=== PATIENT | male | born 1975 | race Caucasian/White ===

== ENCOUNTER → 2018-05-20 16:34 | Outpatient (CLI) | payer BC, SELFPAY ==
[2018-05-20 17:29] LABS: Absolute Neutrophil Count 4.9 X10^3/uL (2.0-7.7); Basophil# 0.02 X10^3/uL; Basophil% 0.3 % (0-1); Eosinophil# 0.13 X10^3/uL; Eosinophils% 1.8 % (0-5); Hematocrit 48.1 % (40-54); Hemoglobin 16.3 g/dl (13.0-16.5); Lymphocyte % 18.3 % (19-41); Mean Corp Hgb Conc 33.9 g/gl (32-36); Mean Corpuscular Hgb 31.1 pg (27.0-32.0); Mean Corpuscular Volume 91.8 fL (80-94); Mean Platelet Vol. 10.2 fl (6.2-12.0); Monocyte# 0.78 X10^3/uL; Neutrophil # 4.88 X10^3/uL (2.7-7.7); Neutrophil % 68.5 % (47-70); Platelet Count 223 K/mm3 (150-450); RBC Distribution Width CV 13.5 % (11.6-14.6); RBC Distribution Width SD 45.1 fl (35.1-43.9); Red Blood Count 5.24 M/mm3 (4.6-6.2); White Blood Count 7.1 K/mm3 (4.4-11.0)
[2018-05-20 17:31] LABS: POSITIVE COUNT NO; POSITIVE DIFFERENTIAL NO; POSITIVE MORPHOLOGY NO
[2018-05-20 17:35] LABS: Erythrocyte Sedimentation Rate 9 mm/hr (0-15)
[2018-05-20 17:42] LABS: ALB/GLOB Ratio 0.8 RATIO (0.9-2.4); AST(SGOT) 17 U/L (15-37); Alanine Aminotransfer ALT/SGPT 26 U/L (16-61); Albumin, Serum 2.2 g/dL (3.2-5.0); Alkaline Phosphatase 109 U/L (45-117); Anion Gap 5 (5-15); BUN 11 mg/dL (7-18); BUN/Creat Ratio 8.8 RATIO (10-20); Calcium,Total 8.4 mg/dL (8.5-10.1); Chloride 106 mmol/L (98-107); Creatinine, Serum 1.25 mg/dL (0.70-1.30); EST Glomerular Filtration Rate 67 mL/min (>60); Est Glom Filt Rate - Afr Amer 81 mL/min (>60); Globulin 2.7 g/dL (2.2-4.2); Glucose 80 mg/dL (74-106); Potassium 4.1 mmol/L (3.5-5.1); Protein, Total 4.9 g/dL (6.4-8.2); Sodium Level 144 mmol/L (136-145)
--- OUTSIDE RECORDS SUMMARY | 2018-07-15 16:23 | XMS RPT_ITS ---
:1975 Author Organization [facility] Care Team Providers Name Role Phone Judy Escalante Attending Unavailable Judy Escalante Primary Care Unavailable PROBLEMS PROBLEMS No Problem Records FoundPROCEDURES PROCEDURES No Procedure Records FoundRESULTS RESULTS CBC W/DIFF, AUTOMATED Collected: 05/20/2018 Status: F Source: [place] 4:36 PM [facility] REPOSITORY TYPE CODE TESTS RESULT OUT OF RANGE REFERENCE UNITS LAB L100.1000 4.4-11.0 K/mm3 Normal WBC 7.1 LAB L100.1200 4.6-6.2 M/mm3 Normal RBC 5.24 LAB L100.1300 13.0-16.5 g/dl Normal HGB 16.3 LAB L100.1400 40-54 % Normal HCT 48.1 LAB L100.1500 80-94 fL Normal MCV 91.8 LAB L100.1600 27.0-32.0 pg Normal MCH 31.1 LAB L100.1700 32-36 g/gl Normal MCHC 33.9 LAB L100.1810 11.6-14.6 % Normal RDW CV 13.5 LAB L100.1820 35.1-43.9 fl High RDW SD 45.1 LAB L100.1900 150-450 K/mm3 Normal PLT 223 LAB L100.2000 6.2-12.0 fl Normal MPV 10.2 LAB L100.2100 47-70 % Normal NEUT% 68.5 LAB L100.2200 19-41 % Low LY% 18.3 LAB L100.2300 0-10 % High MONO% 11.0 LAB L100.2400 0-5 % Normal EO% 1.8 LAB L100.2500 0-1 % Normal BASO% 0.3 LAB L100.2550 0.0-0.9 % Normal IM GRAN % 0.100 Result Comment: IG% - Immature Granulocytes (promyelocytes, myelocytes and metamyelocytes) > 1% indicates that a LEFT SHIFT is Present. LAB L100.2620 2.0-7.7 X10 3/uL Normal Absolute Neut 4.9 LAB L100.2720 0.83-4.51 X10 3/ul Normal Absolute Lymph 1.30 Performed By: #### L100.0100, L101.9900 #### [facility] [address] [place], [place], [address] ERYTHROCYTE SED RATE Collected: 05/20/2018 Status: F Source: [place] 4:36 PM [facility] REPOSITORY TYPE CODE TESTS RESULT OUT OF RANGE REFERENCE UNITS LAB L102.0000 0-15 mm/hr Normal SED RATE 9 Performed By: #### L100.0100, L101.9900 #### [facility] [address] [facility] [place], [place], [address] COMPREHENSIVE METABOLIC Collected: 05/20/2018 Status: F Source: [facility] 4:36 PM [facility] REPOSITORY TYPE CODE TESTS RESULT OUT OF RANGE REFERENCE UNITS LAB L501.0100 74-106 mg/dL Normal GLU 80 Result Comment: Please note revised GLUCOSE reference range effective 2017. LAB L501.1000 7-18 mg/dL Normal BUN 11 LAB L501.1100 0.70-1.30 mg/dL Normal CREAT,SERUM 1.25 Result Comment: The validity of the calculated GFR AND GFRAA in patients over 70 years has not been determined. Clinical correlation is essential. LAB L501.1110 >60 mL/min Normal EST GFR 67 Result Comment: Non- GFR Calc LAB L501.1115 >60 mL/min Normal EST GFR - AA 81 Result Comment: GFR Calc LAB L501.1300 10-20 RATIO Low BUN/CRE 8.8 LAB L501.1500 6.4-8.2 g/dL Low T PROT 4.9 LAB L501.1800 3.2-5.0 g/dL Low ALB 2.2 LAB L501.1950 2.2-4.2 g/dL Normal GLOB 2.7 LAB L501.2000 0.9-2.4 RATIO Low A/G 0.8 LAB L501.2200 8.5-10.1 mg/dL Low CA 8.4 LAB L501.4100 15-37 U/L Normal AST 17 LAB L501.4305 45-117 U/L Normal ALK P 109 LAB L501.4405 16-61 U/L Normal ALT 26 LAB L501.4600 0.20-1.00 mg/dL Normal T BILI 0.30 LAB L501.5300 136-145 mmol/L Normal NA 144 LAB L501.5600 3.5-5.1 mmol/L Normal K 4.1 LAB L501.5900 98-107 mmol/L Normal CL 106 LAB L501.6100 21.0-32.0 mmol/L High CO2 33.0 LAB L501.6200 5-15 Normal GAP 5 Performed By: #### L500.4050 #### [facility] [address] [place], [address] ALLERGIES ALLERGIES DATE TYPE / CODE NAME / CODE REACTION SEVERITY SOURCE 02/11/2015 Drug No Known Unknown [facility] Allergy/4160 Allergies/F00 Hospital 44123(SNOMED [id number](RXNOR Repository CT) M) ENCOUNTERS ENCOUNTERS ADMIT/DISCHARGE ACCOUNT ADMITTING ENCOUNTER LOCATION SOURCE NUMBER CLASS 05/20/2018 [id number] Ambulatory [address] ing:MFPLAB Repository PAYERS PAYERS ENCOUNTER GUARANTOR PAYER SUBSCRIBER SOURCE 05/20/2018 CHARLY Primary CHARLY Colome [id number] Insurance:ANTHEMPolic [facility]MANDOB[facility] [place]: [id number] [id number] Repository [address]a: [address]) Date:[id number] [phone] () [id number], [place] [address]YH: 05/20/2018 Secondary NOT GIVENUNK Angelique Insurance:SELF PAY [facility] Number: Effective Repository Date:2018-05-20
== END ==
PROVIDERS: Family Provider Family Medicine; PCP Family Medicine; Visit Provider Family Medicine
DX: R31.9 Hematuria, unspecified (principal)
CPT/HCPCS: 36415; 80053; 85025; 85652

== ENCOUNTER → 2018-06-10 06:45 | Outpatient (CLI) | payer BC, SELFPAY ==
--- NOTE | 2018-06-10 06:49 | CT_ITS ---
STUDY: CT ABDOMEN AND PELVIS WITH AND WITHOUT CONTRAST REASON FOR EXAM: Male, 43 years old. Microscopic hematuria RADIATION DOSAGE (If Supplied By Facility): CTDIvol = ( 19.92 ) mGy, DLP = ( 1963.75 ) mGycm TECHNIQUE: Transaxial images were obtained from the dome of the diaphragm to the symphysis pubis without oral contrast. 100mL ml of Isovue 300 contrast was administered. Sagittal and coronal images were reconstructed. Individualized dose optimization techniques were used for this CT. COMPARISON: None. FINDINGS: The visualized lung bases are unremarkable. The visualized portions of the heart are within normal limits. Normal liver. Normal gallbladder and extrahepatic biliary system. Normal spleen. Normal pancreas. Normal bilateral adrenal glands. Normal right kidney. Normal left kidney. There are NO kidney stones or ureteral stones. There is NO hydronephrosis. There is NO renal mass or cyst. Normal visualized stomach. Normal small intestine. Normal colon. The appendix is visualized and appears normal. Normal abdominal aorta. Normal inferior vena cava. Normal retroperitoneum. Normal urinary bladder. There is NO ascites, free air, abscess or adenopathy. Normal abdominal wall. There is bilateral spondylolysis at L5-S1 with grade 1 anterior spondylolisthesis. There are NO fractures. CT/CT Abd/Pelvis W/WO Contrast IMPRESSION: There are NO kidney stones or ureteral stones. There is NO hydronephrosis. There is NO renal mass or cyst. There is NO bowel abnormality. Normal urinary bladder. There is NO ascites, free air, abscess or adenopathy. Electronically Signed: Elton Goodson MD at 7:21 EST , Service support ,
== END ==
PROVIDERS: Family Provider Family Medicine; PCP Family Medicine; Referring Provider Nurse Practitioner Adult Health; Visit Provider Nurse Practitioner Adult Health
DX: R31.29 Other microscopic hematuria (principal)
CPT/HCPCS: 74178; Q9967

== ENCOUNTER 2018-08-29 12:15 | Emergency (ER) | payer OTHER, SELFPAY ==
[2018-08-29 12:16] VITALS: BP 128/88; PULSE 99; RESP 16; TEMP 36.4; O2SAT 97; BMI 28.7
[2018-08-29] MEDS: Mag Hydrox/Al Hydrox/Simeth 30 ML UDC PO (12:57)
[2018-08-29 12:58] LABS: Absolute Lymphocyte Count 1.36 X10^3/ul (0.83-4.51); Basophil# 0.01 X10^3/uL; Basophil% 0.1 % (0-1); Eosinophil# 0.19 X10^3/uL; Eosinophils% 2.3 % (0-5); Hematocrit 41.7 % (40-54); Lymphocyte # 1.36 X10^3/ul (4.0); Lymphocyte % 16.4 % (19-41); Mean Corp Hgb Conc 33.6 g/gl (32-36); Mean Corpuscular Hgb 29.6 pg (27.0-32.0); Mean Corpuscular Volume 88.2 fL (80-94); Mean Platelet Vol. 9.9 fl (6.2-12.0); Monocyte# 0.72 X10^3/uL; Monocyte% 8.7 % (0-10); Neutrophil % 72.4 % (47-70); Platelet Count 218 K/mm3 (150-450); RBC Distribution Width CV 12.9 % (11.6-14.6); RBC Distribution Width SD 41.3 fl (35.1-43.9); Red Blood Count 4.73 M/mm3 (4.6-6.2); White Blood Count 8.3 K/mm3 (4.4-11.0)
[2018-08-29 12:59] LABS: POSITIVE COUNT NO; POSITIVE DIFFERENTIAL NO; POSITIVE MORPHOLOGY NO
[2018-08-29 13:06] LABS: ALB/GLOB Ratio 0.5 RATIO (0.9-2.4); AST(SGOT) 11 U/L (15-37); Alanine Aminotransfer ALT/SGPT 17 U/L (16-61); Albumin, Serum 1.7 g/dL (3.2-5.0); Alkaline Phosphatase 117 U/L (45-117); Anion Gap 5 (5-15); BUN 9 mg/dL (7-18); BUN/Creat Ratio 8.4 RATIO (10-20); Calcium,Total 7.7 mg/dL (8.5-10.1); Chloride 107 mmol/L (98-107); Creatinine, Serum 1.07 mg/dL (0.70-1.30); EST Glomerular Filtration Rate 80 mL/min (>60); Est Glom Filt Rate - Afr Amer 97 mL/min (>60); Estimated Creatinine Clearance 91.91 ml/min; Globulin 3.2 g/dL (2.2-4.2); Glucose 110 mg/dL (74-106); Lipase 82 U/L (73-393); Potassium 3.7 mmol/L (3.5-5.1); Protein, Total 4.9 g/dL (6.4-8.2); Sodium Level 140 mmol/L (136-145)
[2018-08-29 14:26] VITALS: BP 154/97; PULSE 62; RESP 16; O2SAT 98
--- NOTE | 2018-08-29 15:41 | CT_ITS ---
STUDY: CT ABDOMEN AND PELVIS WITH CONTRAST REASON FOR EXAM: Male, 43 years old. Abdominal pain. RADIATION DOSAGE (If Supplied By Facility): CTDIvol = ( 16.52 ) mGy, DLP = ( 1113.73 ) mGycm TECHNIQUE: Transaxial images were obtained from the dome of the diaphragm to the symphysis pubis with oral contrast. Isovue 300 100ml IV/Oral was administered. Sagittal and coronal images were reconstructed. Individualized dose optimization techniques were used for this CT. COMPARISON: June 10, 2018. FINDINGS: The visualized lung bases are unremarkable. The visualized portions of the heart are within normal limits. Normal liver. Normal gallbladder and extrahepatic biliary system. There is moderate splenomegaly. Normal pancreas. Normal bilateral adrenal glands. Normal right kidney. Normal left kidney. There is a type I hiatal hernia. The stomach is otherwise unremarkable. Normal small intestine. Air in feces is seen throughout nondistended colon without mass or obstruction. The appendix is visualized and appears normal. Normal abdominal aorta. Normal inferior vena cava. Normal retroperitoneum. Normal urinary bladder. Normal prostate and seminal vesicles. There is no pelvic lymphadenopathy. No free air or free fluid is seen within the peritoneal cavity. Normal abdominal wall. There are diffuse degenerative changes of the visualized lumbar spine. There is anterolisthesis of L5 on S1 with bilateral pars defects. CT/Abdomen/Pelvis WITH Contrast IMPRESSION: 1. Stable hiatal hernia. 2. Stable mild splenomegaly. 3. No evidence for acute intra-abdominal or pelvic abnormality or major interval change. Electronically Signed: Natan Sykes DO at 16:50 EDT Tel [phone], Service support ,
--- NOTE | 2018-08-29 16:14 | ED.VISSUMM ---
- ER Visit Summary Date of Service: 08/29/18 Chief Complaint: Abdominal pain History of Present Illness: The patient is a 43 M who presents the emergency department with epigastric pain. He states that it is a sensation like his been punched in the stomach. It is nonradiating. He states he had a gallbladder ultrasound 1 week ago. He states that showed polyps. He was referred to general surgery (Jorge) and supposed to see them on Wednesday. He states now the pain is constant and more severe. Notes a history of GERD and is on Prilosec. He has had this pain intermittently since May. He states the pain in his abdomen feels better when he pushes on his epigastrium Physical Examination: Afebrile vital signs are stable Gen: Well-nourished well-developed Head: Normocephalic atraumatic Eyes: Perrl EOMI ENT: TMs clear no rhinorrhea moist mucous membranes Neck: Supple no lymphadenopathy no JVD nontender CVS: Regular rate rhythm no murmurs normal S1-S2 Respiratory: No distress clear to auscultation bilaterally chest nontender Abdomen: Soft nontender nondistended normal bowel sounds no masses Back: Nontender Extremity: Nontender no edema Skin: Normal color no rash Neuro: alert orientated ?3 CN II-XII intact normal strength sensation reflexes gait cerebellar Psych: Normal affect normal mood Test Results: CBC CMP and lipase were normal. CT demonstrates a hiatal hernia. Emergency Department Course and Treatment: GI cocktail did not alleviate his symptoms. Patient received morphine with some improvement of his symptoms. This point there is no clear etiology for his pain. Given the location is CT with a hiatal hernia I do suspect this could be peptic ulcer disease versus gastritis. Patient has upcoming appointment in 4 days with surgery. I will write for some Carafate to add to his Prilosec. Impression: 1. Acute abdominal pain This note was generated with [employer] dictation software. It may contain incorrect words, spelling, and punctuation that were not noted in review of the chart prior to signing ED Disposition - Plan for ED Patient: Disposition: Home or Assisted Living Instructions: ED PUD Vs Gastritis Prescriptions: Hydrocodone Bitart/Apap 5-325 [[place] 5MG-325MG] 1 tab PO Q6H PRN PRN 3 Days #10 tab PRN Reason: Pain Sucralfate [Carafate] 1 gm PO 4X/DAY #56 tab Referrals: Wes Patel MD [STAFF PHYSICIAN] - Keep Melba appointment
--- NOTE | 2018-08-29 16:18 | ED.DCSUM_ITS ---
- ER Visit Summary Date of Service: 08/29/18 Chief Complaint: Abdominal pain History of Present Illness: The patient is a 43 M who presents the emergency department with epigastric pain. He states that it is a sensation like his been punched in the stomach. It is nonradiating. He states he had a gallbladder ultrasound 1 week ago. He states that showed polyps. He was referred to general surgery (Jorge) and supposed to see them on Wednesday. He states now the pain is constant and more severe. Notes a history of GERD and is on Prilosec. He has had this pain intermittently since May. He states the pain in his abdomen feels better when he pushes on his epigastrium Physical Examination: Afebrile vital signs are stable Gen: Well-nourished well-developed Head: Normocephalic atraumatic Eyes: Perrl EOMI ENT: TMs clear no rhinorrhea moist mucous membranes Neck: Supple no lymphadenopathy no JVD nontender CVS: Regular rate rhythm no murmurs normal S1-S2 Respiratory: No distress clear to auscultation bilaterally chest nontender Abdomen: Soft nontender nondistended normal bowel sounds no masses Back: Nontender Extremity: Nontender no edema Skin: Normal color no rash Neuro: alert orientated ?3 CN II-XII intact normal strength sensation reflexes gait cerebellar Psych: Normal affect normal mood Test Results: CBC CMP and lipase were normal. CT demonstrates a hiatal hernia. Emergency Department Course and Treatment: GI cocktail did not alleviate his symptoms. Patient received morphine with some improvement of his symptoms. This point there is no clear etiology for his pain. Given the location is CT with a hiatal hernia I do suspect this could be peptic ulcer disease versus gastritis. Patient has upcoming appointment in 4 days with surgery. I will write for some Carafate to add to his Prilosec. Impression: 1. Acute abdominal pain This note was generated with [employer] dictation software. It may contain incorrect words, spelling, and punctuation that were not noted in review of the chart prior to signing ED Disposition - Plan for ED Patient: Disposition: Home or Assisted Living Instructions: ED PUD Vs Gastritis Prescriptions: Hydrocodone Bitart/Apap 5-325 [[place] 5MG-325MG] 1 tab PO Q6H PRN PRN 3 Days #10 tab PRN Reason: Pain Sucralfate [Carafate] 1 gm PO 4X/DAY #56 tab Referrals: Wes Patel MD [STAFF PHYSICIAN] - Keep Melba appointment
[2018-08-29 16:37] VITALS: BP 139/74; PULSE 71; RESP 16; O2SAT 98
== END 2018-08-29 17:14 | disposition home or self-care (01) ==
PROVIDERS: Emergency Provider Emergency Medicine; Family Provider Physician Assistant; PCP Physician Assistant
DX: R10.13 Epigastric pain (principal); K44.9 Diaphragmatic hernia without obstruction or gangrene; K21.9 Gastro-esophageal reflux disease without esophagitis; Z79.899 Other long term (current) drug therapy
CPT/HCPCS: 74177; 80053; 83690; 85025; 99284; Q9967; A4216

== ENCOUNTER 2018-10-09 22:33 | Emergency (ER) | payer OTHER, SELFPAY ==
[2018-10-09 22:34] VITALS: BP 118/69; PULSE 89; RESP 18; TEMP 37.1; O2SAT 99; BMI 25.8
--- NOTE | 2018-10-09 23:03 | ED.VIS.GEN ---
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 Has not started treatment. Has seen oncology as well as surgery. He is going to start chemotherapy tomorrow. He has had chronic intermittent abdominal pain that has not changed in nature since May. He was seen in our emergency department approximately 5 weeks ago and had a normal CT of his abdomen pelvis. He did have a hiatal hernia. He followed up and had an endoscopy which showed esophageal cancer. The patient is here today because he started having emesis approximately a few hours ago. He has had 3-4 episodes. He tried Compazine but cannot keep it down. He has had problems with dry heaving and nausea due to his esophagus cancer. He has not had treatment yet. The plan is to do chemotherapy starting tomorrow followed by resection of the tumor following. Current severity is mild to moderate. Denies any new abdominal pain. No fevers or chills. Past Medical History - Allergies and Home Meds Allergies/Adverse Reactions: Allergies No Known Allergies Allergy (Verified 02/11/15 13:57) Primary Care Physician: Kathya Smith PA [Primary Care Provider] - Prior records reviewed: Yes Past Medical History: - - Esophageal cancer Surgical History: - - Port Smoking Status: Never smoker Alcohol: Occasional Drugs: None Review of Systems General: Denies: Chills, Fever, Sweats Eyes: Denies: Visual changes - bilaterally, Diplopia ENT: Denies: Rhinorrhea, Sore throat Cardiovascular: Denies: Chest pain, Palpitations Respiratory: Reports: Paroxysmal nocturnal dyspnea. Denies: Dyspnea, Cough, Dyspnea on exertion Gastrointestinal: Reports: Abdominal pain - Pain in his abdomen is chronic and not changed, Nausea, Vomiting. Denies: Diarrhea, Melena, Hematochezia Genitourinary: Denies: Dysuria, Hematuria, Frequency Musculoskeletal: Denies: Back pain, Extremity Pain Skin: Denies: Rash, Wounds Neurological: Denies: Headache, Weakness, Numbness Physical Exam Vital Signs/Narrative: Vital Signs Temp Pulse Resp BP Pulse Ox 10/09/18 22:34 98.8 F 89 18 118/69 99 General: Well nourished, Well developed, No Acute Distress Head: Normocephalic, Atraumatic Eyes: Perrl, EOMI ENT: Moist mucous membranes, No rhinorrhea Neck: Supple, Nontender Cardiovascular: Regular rate, Regular rhythm, No murmurs Respiratory: No distress, CTA bilaterally, Chest nontender Abdomen: Soft, Nontender, Nondistended, Normal bowel sounds Back: Nontender, Normal Inspection Extremities: Nontender, No edema Skin: Normal color, No rash Neurological: Alert, Oriented x3, Cranial nerves II-XII grossly intact, Normal Strength, Normal Sensation Psychological: Normal affect, Normal Mood Diagnostic/Tx/Re-eval - Medical Decision Making Patient given IV fluids and Zofran. Lab work obtained. Lab work shows a very slight leukocytosis. I suspect this is from his nausea. On reevaluation his nausea is resolved. Given 2 L of fluid. Resting comfortably. Given a dose of Toradol for mild chronic abdominal pain. I do not feel he needs repeat CT abdomen pelvis. He will follow-up as an outpatient for further treatment of his esophageal cancer. Given a prescription for Zofran for home ED Disposition - Plan for ED Patient: Disposition: Home or Assisted Living Diagnosis: Nausea and vomiting, Esophageal cancer Instructions: ED Nausea Vomiting Prescriptions: Ondansetron [Zofran Odt] 4 mg PO Q8H PRN PRN #10 tab PRN Reason: Nausea Referrals: Kathya Smith PA [Primary Care Provider] -
[2018-10-09] MEDS: Ondansetron 4 MG/2 ML Vial IV (23:12)
[2018-10-09] MEDS: 0.9% Normal Saline 1,000 ML 1000 ML IV ×2 (23:12)
[2018-10-09 23:17] LABS: Basophil% 0.1 % (0-1); Eosinophils% 1.7 % (0-5); Hemoglobin 13.2 g/dl (13.0-16.5); Lymphocyte % 13.9 % (19-41); Mean Corp Hgb Conc 34.7 g/gl (32-36); Mean Corpuscular Volume 86.4 fL (80-94); Mean Platelet Vol. 8.8 fl (6.2-12.0); Neutrophil % 76.1 % (47-70); Platelet Count 391 K/mm3 (150-450); RBC Distribution Width CV 12.9 % (11.6-14.6); RBC Distribution Width SD 40.5 fl (35.1-43.9); White Blood Count 12.7 K/mm3 (4.4-11.0)
[2018-10-09 23:18] LABS: Absolute Lymphocyte Count 1.76 X10^3/ul (0.83-4.51); Absolute Neutrophil Count 9.7 X10^3/uL (2.0-7.7); Basophil# 0.01 X10^3/uL; Eosinophil# 0.22 X10^3/uL; Lymphocyte # 1.76 X10^3/ul (4.0); Monocyte# 1.01 X10^3/uL; Neutrophil # 9.66 X10^3/uL (2.7-7.7); POSITIVE COUNT NO; POSITIVE DIFFERENTIAL NO; POSITIVE MORPHOLOGY NO
[2018-10-09 23:30] LABS: Anion Gap 5 (5-15); BUN 10 mg/dL (7-18); BUN/Creat Ratio 10.4 RATIO (10-20); Calcium,Total 8.4 mg/dL (8.5-10.1); Chloride 102 mmol/L (98-107); Creatinine, Serum 0.96 mg/dL (0.70-1.30); EST Glomerular Filtration Rate 90 mL/min (>60); Est Glom Filt Rate - Afr Amer 109 mL/min (>60); Estimated Creatinine Clearance 102.45 ml/min; Glucose 126 mg/dL (74-106); Potassium 4.3 mmol/L (3.5-5.1); Sodium Level 138 mmol/L (136-145)
[2018-10-10] MEDS: Ketorolac 15 MG/ML Vial IV (00:34)
[2018-10-10 00:38] VITALS: BP 119/90; PULSE 64; RESP 14; O2SAT 98
== END 2018-10-10 00:38 | disposition home or self-care (01) ==
PROVIDERS: Emergency Provider Emergency Medicine; Family Provider Physician Assistant; PCP Physician Assistant
DX: R11.2 Nausea with vomiting, unspecified (principal); C15.9 Malignant neoplasm of esophagus, unspecified; G89.29 Other chronic pain; R10.9 Unspecified abdominal pain; Z79.899 Other long term (current) drug therapy
CPT/HCPCS: 80048; 85025; 96361; 96374; 96375; 99282; J7030; A4216; J2405

== ENCOUNTER 2018-12-01 19:07 | Emergency (ER) | payer OTHER, SELFPAY ==
[2018-12-01] VITALS (12 sets, daily range): BP systolic 95–136; BP diastolic 69–91; PULSE 80–127; RESP 25–107; TEMP 36.9–39.4; O2SAT 90–97; BMI 23.6
[2018-12-01 19:26] LABS: Bedside Glucose 105 mg/dL (70-110)
--- NOTE | 2018-12-01 19:26 | CT_ITS ---
STUDY: CT BRAIN WITHOUT CONTRAST REASON FOR EXAM: Male, 43 years old. Syncope. Laceration to the back of the head RADIATION DOSAGE (If Supplied By Facility): CTDIvol = ( 44.99 ) mGy, DLP = ( 829.85 ) mGycm TECHNIQUE: Transaxial CT imaging of the brain was performed without administration of intravenous contrast material. Individualized dose optimization techniques were used for this CT. COMPARISON: No relevant priors. FINDINGS: Normal soft tissue structures. Normal calvarium. Normal size ventricles and extra-axial spaces for the patient's age. Normal white matter tracts of the cerebral hemispheres. Normal basal ganglia and thalami. Normal brainstem. Normal cerebellum. There is no intracranial hemorrhage. There are no findings of an acute ischemic infarction. There is mucoperiosteal inflammatory disease of the paranasal sinuses consistent with moderate chronic sinusitis. CT/Brain/Head without Contrast IMPRESSION: No acute finding Electronically Signed: Kenneth Pitts DO at 20:59 EDT Tel , Service support ,
--- NOTE | 2018-12-01 19:26 | EKG12_ITS ---
Test Reason : UNRESPONSIVE Blood Pressure : / mmHG Vent. Rate : 107 BPM Atrial Rate : 107 BPM P-R Int : 126 ms QRS Dur : 086 ms QT Int : 396 ms P-R-T Axes : 059 078 -14 degrees QTc Int : 528 ms Sinus tachycardia Possible Inferior infarct , age undetermined Prolonged QT Abnormal ECG Confirmed by LISA ROD ([id number]), assistant film editor FABIANO MARQUEZ ([id number]) on 12/05/2018 1:12:35 PM Referred By: Confirmed By:KAELA ROD
--- NOTE | 2018-12-01 19:27 | CT_ITS ---
STUDY: CT ABDOMEN AND PELVIS WITH CONTRAST REASON FOR EXAM: Male, 43 years old. Syncope. RADIATION DOSAGE (If Supplied By Facility): CTDIvol = ( 13.50 ) mGy, DLP = ( 945.62 ) mGycm TECHNIQUE: Transaxial images were obtained from the dome of the diaphragm to the symphysis pubis without oral contrast. 100ml IV Isovue 300 was administered. Sagittal and coronal images were reconstructed. Individualized dose optimization techniques were used for this CT. COMPARISON: None. FINDINGS: Diffuse patchy groundglass airspace disease in the right lower lobe suggesting infection. Art size is within normal limits. Diffuse esophageal wall thickening of the distal esophagus. Normal liver. The gallbladder is contracted. Normal spleen. Normal pancreas. Normal bilateral adrenal glands. Normal right kidney. Normal left kidney. Normal visualized stomach. Normal small intestine. Normal colon. The appendix is visualized and appears normal. Normal abdominal aorta. Normal inferior vena cava. Normal retroperitoneum. Normal urinary bladder. Unremarkable prostate. Trace pelvic free fluid Normal abdominal wall. Normal osseous structures. CT/Abdomen/Pelvis W IV Cont ONLY IMPRESSION: Patchy groundglass airspace disease in the right lower lobe suggesting infection. Distal esophageal wall thickening could be related to given history of esophageal carcinoma. Small amount of nonspecific pelvic free fluid Electronically Signed: Kenneth Pitts DO at 20:55 EDT Tel , Service support ,
--- NOTE | 2018-12-01 19:30 | RAD_ITS ---
STUDY: X-RAY CHEST REASON FOR EXAM: Male, 43 years old. Shortness of breath TECHNIQUE: Single AP portable view of the chest. COMPARISON: None. FINDINGS: Lungs are adequately inflated. Subtle right lower lobe infiltrate suggesting pneumonia. Left chest wall Mediport is noted. There is no demonstrated pleural abnormality. Normal size heart. Normal mediastinum and obdulio. Normal visualized pulmonary arteries. Normal visualized aortic arch and descending thoracic aorta. There are diffuse degenerative changes of the visualized thoracic spine. Normal visualized ribs, clavicles, and shoulders. There is no demonstrated abnormality of the visualized soft tissue structures of the upper abdomen. RAD/Chest 1 View (Portable) IMPRESSION: Subtle right lower lobe pneumonia Electronically Signed: Kenneth Pitts DO at 20:03 EDT Tel , Service support ,
--- NOTE | 2018-12-01 19:30 | CT_ITS ---
STUDY: CT CERVICAL SPINE WITHOUT CONTRAST REASON FOR EXAM: Male, 43 years old. Syncope RADIATION DOSAGE (If Supplied By Facility): CTDIvol = ( 12.13 ) mGy, DLP = ( 264.56 ) mGycm TECHNIQUE: High resolution transaxial imaging was performed without contrast material. Sagittal and coronal images were reconstructed. Individualized dose optimization techniques were used for this CT. COMPARISON: None FINDINGS: Normal craniovertebral junction. Normal anterior atlantoaxial articulation. Normal odontoid process. Normal cervical lordosis. Normal vertebral bodies and posterior osseous elements. C2-3: Normal endplates. Normal disc height and morphology. Normal central canal and intervertebral neuroforamina. C3-4: Normal endplates. Normal disc height and morphology. Normal central canal and intervertebral neuroforamina. C4-5: Normal endplates. Normal disc height and morphology. Normal central canal and intervertebral neuroforamina. C5-6: Normal endplates. Normal disc height and morphology. Normal central canal and intervertebral neuroforamina. C6-7: Normal endplates. Normal disc height and morphology. Normal central canal and intervertebral neuroforamina. C7-T1: Normal endplates. Normal disc height and morphology. Normal central canal and intervertebral neuroforamina. Normal visualized soft tissue structures. CT/Spine Cervical without Contras IMPRESSION: Normal unenhanced CT examination of the cervical spine. Electronically Signed: Kenneth Pitts DO at 21:00 EDT Tel , Service support ,
--- NOTE | 2018-12-01 19:33 | ED.DCSUM_ITS ---
- ER Visit Summary Date of Service: 12/01/18 Chief Complaint: Syncopal episode History of Present Illness: The patient is a 43 M presenting after syncopal episode. Patient had a syncopal episode and family called EMS. On EMS arrival he had collapsed while trying to walk to the ambulance. Patient has a history of esophageal cancer and recently finished chemotherapy. Family states he has been ill for the past few days. He has a fever on arrival. They were unaware of his fever at home. He denies use of pain medications at home. History is otherwise limited. Physical Examination: Blood pressure 121/91, temperature 102.9, heart rate 117, respiratory rate 26. Pulse ox 91% on room air. HEENT exam dry mucous membranes Neck is supple. Lungs are clear and equal bilaterally. Heart is regular and tachycardic Abdomen is soft diffuse tenderness with no rebound or guarding Extremities are unremarkable. Skin is warm and dry. Pallor. No rash No focal neurologic deficit. Opens eyes to voice. Remainder of exam is unremarkable. Emergency Department Course and Treatment: Patient was given IV fluids, Zofran, rectal Tylenol. Blood cultures were drawn. CBC shows white count 2.5, hemoglobin 10.1. Sodium 129, potassium 2.8, glucose 114. Alk phos 122, lipase 84, INR 1.4. Troponin is negative. Lactic acid 2.4. Chest x-ray shows right lower lobe pneumonia. CT head and neck show no acute process. CT abdomen pelvis shows patchy groundglass airspace disease in the right lower lobe suggesting infection. Distal esophageal wall thickening could be related to given history of esophageal carcinoma. Small amount of nonspecific pelvic free fluid. Patient was given meropenem IV. He is requesting transfer to [facility]. Discussed with [facility] and patient will be transferred. Disposition: Transfer to [facility] Impression: Pneumonia, syncope, esophageal cancer This note was generated with [employer] dictation software. It may contain incorrect words, spelling, and punctuation that were not noted in review of the chart prior to signing ED Disposition - Plan for ED Patient: Referrals: Kathya Smith PA [Primary Care Provider] -
--- NOTE | 2018-12-01 19:33 | ED.RN ---
NO OLD EKGS IN MUSE
[2018-12-01] MEDS: Acetaminophen 650 MG Suppository RECTAL (19:41)
[2018-12-01] MEDS: 0.9% Normal Saline 1,000 ML 1000 ML IV (19:41)
[2018-12-01] MEDS: Ondansetron 4 MG/2 ML Vial IV (19:41)
[2018-12-01 19:43] LABS: Absolute Lymphocyte Count 0.66 X10^3/ul (0.83-4.51); Absolute Neutrophil Count 1.6 X10^3/uL (2.0-7.7); Hematocrit 29.5 % (40-54); Hemoglobin 10.1 g/dl (13.0-16.5); Lymphocyte # 0.66 X10^3/ul (4.0); Lymphocyte % 26.5 % (19-41); Mean Corp Hgb Conc 34.2 g/gl (32-36); Mean Corpuscular Hgb 29.4 pg (27.0-32.0); Mean Corpuscular Volume 85.8 fL (80-94); Mean Platelet Vol. 8.4 fl (6.2-12.0); Monocyte# 0.21 X10^3/uL; Monocyte% 8.4 % (0-10); Neutrophil # 1.61 X10^3/uL (2.7-7.7); Neutrophil % 64.7 % (47-70); Platelet Count 357 K/mm3 (150-450); RBC Distribution Width CV 15.6 % (11.6-14.6); RBC Distribution Width SD 48.6 fl (35.1-43.9); Red Blood Count 3.44 M/mm3 (4.6-6.2); White Blood Count 2.5 K/mm3 (4.4-11.0)
--- NOTE | 2018-12-01 19:45 | CM.ED ---
SOCIAL WORK INFORMANT: SELF REFERRAL REASON FOR REFERRAL: UNRESPONSIVE MET WITH PATIENT'S FAMILY OUTSIDE OF ROOM. PATIENT GETTING XRAY. PATIENT WITH HX OF CANCER AND JUST COMPLETED CHEMO LAST WEEK. FAMILY REPORTS PATIENT LIVES HOME ALONE IN A TRAILER AND PLAN WAS FOR PATIENT TO STAY WITH MOTHER UNTIL STRENGTH BUILT BACK UP. MOTHER REPORTS PATIENT HAS BECOME MORE WEAK AND UNABLE TO CARE FOR SELF ALONE. BROTHER REPORTS PATIENT HAS BEEN PASSING OUT A LOT LATELY. FAMILY REPORTS PATIENT HAS NOT YET COMPLETED ADVANCED DIRECTIVES AND WOULD LIKE FOR PATIENT TO HAVE INFORMATION. ADVANCED DIRECTIVES PACKET PROVIDED. FAMILY STATES WOULD LIKE PATIENT TO BE TRANSFERRED TO [facility] THAT IS WHERE HE IS TO HAVE SURGERY. INFORMED FAMILY THIS WORKER WILL DISCUSS WITH DR. STAFFORD. EMOTIONAL SUPPORT PROVIDED. DR. STAFFORD UPDATED ON THE ABOVE. PLAN: TBD, FAMILY WANTING TRANSFER TO [facility].
[2018-12-01 19:46] LABS: International Normalized Ratio 1.4; POSITIVE COUNT NO; POSITIVE DIFFERENTIAL NO; POSITIVE MORPHOLOGY NO; Prothrombin Time (Protime)PT. 16.8 SECONDS (11.7-14.9)
[2018-12-01 19:58] LABS: ALB/GLOB Ratio 0.1 RATIO (0.9-2.4); AST(SGOT) 22 U/L (15-37); Alanine Aminotransfer ALT/SGPT 11 U/L (16-61); Albumin, Serum 0.6 g/dL (3.2-5.0); Alkaline Phosphatase 122 U/L (45-117); Anion Gap 7 (5-15); BUN 10 mg/dL (7-18); BUN/Creat Ratio 9.2 RATIO (10-20); Calcium,Total 7.7 mg/dL (8.5-10.1); Chloride 94 mmol/L (98-107); Creatinine, Serum 1.09 mg/dL (0.70-1.30); EST Glomerular Filtration Rate 78 mL/min (>60); Est Glom Filt Rate - Afr Amer 95 mL/min (>60); Estimated Creatinine Clearance 87.38 ml/min; Globulin 4.6 g/dL (2.2-4.2); Glucose 114 mg/dL (74-106); Lipase 84 U/L (73-393); Potassium 2.8 mmol/L (3.5-5.1); Protein, Total 5.2 g/dL (6.4-8.2); Sodium Level 129 mmol/L (136-145)
[2018-12-01 20:31] LABS: Lactic Acid 2.4 mmol/L (0.4-2.0)
--- NOTE | 2018-12-01 20:31 | ED.RN ---
LAB CALLED WITH CRITICAL LAB RESULTS. LACTIC ACID 2.4. DR. STAFFORD MADE AWARE NO NEW ORDERS AT THIS TIME
[2018-12-01 21:51] LABS: Bacteria 0 SEEN /hpf (None Seen); Mucous, Urine 0 SEEN /hpf (<or=2+); White Blood Cells 0 SEEN /hpf (0-5)
[2018-12-01 21:54] LABS: Color, Urine Yellow (Yellow); Glucose, Dipstick Normal (Normal); Ketone-Dipstick Negative (Negative); Leukocyte Esterase-Dipstick Negative /ul (Negative); Nitrite-Dipstick Negative (Negative); Occult Blood-Urine 150 /ul (Negative); Protein-Dipstick 500 mg/dl (Negative); Urine Bilirubin Dipstick Negative (Negative); Urine Clarity Sl. Cloudy (Clear); Urine Urobilinogen 1 mg/dl (Normal)
[2018-12-01 22:04] LABS: Hyaline Cast 0-5 SEEN /lpf (0-5); Red Blood Cells-Urine 10-25 SEEN /hpf (0-5); Squamous Epithelial Cells - UA 0-5 SEEN /hpf (0-5)
--- NOTE | 2018-12-01 22:26 | ED.RN ---
CALLED [facility] TO START THE TRANSFER PROCESS
--- NOTE | 2018-12-01 23:33 | ED.RN ---
CALLED [facility] TO CHECK THE STATUS OF ROOM ASSIGNMENT, PER [facility] IN THE TRANSFER CENTER, THEY ARE AT A HIGH CENSUS, AND NO ROOM IS ASSIGNED AT THIS TIME
[2018-12-01 23:38] LABS: Reflex Lactate? Y
[2018-12-01] MEDS: 0.9% Normal Saline 1,000 ML 999 ML IV (23:44)
[2018-12-02] VITALS (7 sets, daily range): BP systolic 101–114; BP diastolic 65–80; PULSE 73–88; RESP 15–32; TEMP 36.5–37; O2SAT 92–100
[2018-12-02 00:28] LABS: Lactic Acid 1.2 mmol/L (0.4-2.0)
--- NOTE | 2018-12-02 01:04 | ED.RN ---
PT'S PULSE OX DROPPED TO 77%. RN WENT INTO PATIENT ROOM TO CHECK ON HIM. PT STATED HE WAS FEELING DIZZY. OXYGEN WAS ALREADY APPLIED, SLOW DEEP BREATHS ENCOURAGED. MD NOTIFIED. RN, RT AND MD PRESENT AT BEDSIDE. PT BEING BAGGED VIA BVM TO MAINTAIN RESPIRATIONS. PT AROUSED AND ABLE TO ANSWER QUESTIONS, PLACED ON A NRB.
--- NOTE | 2018-12-02 01:36 | ED.RN ---
ok to d/c sepsis vitals per md/ repeat lactic
[2018-12-02] MEDS: Ondansetron 4 MG/2 ML Vial IV (03:13)
[2018-12-02] MEDS: fentaNYL 100 MCG/2 ML Ampul 25 MCG IV (03:13)
== END 2018-12-02 03:48 | disposition short-term general hospital (02) ==
PROVIDERS: Emergency Provider Emergency Medicine; Family Provider Physician Assistant; PCP Physician Assistant
DX: J18.1 Lobar pneumonia, unspecified organism (principal); R55 Syncope and collapse; C15.9 Malignant neoplasm of esophagus, unspecified; Z87.891 Personal history of nicotine dependence
CPT/HCPCS: 70450; 71045; 72125; 74177; 80053; 81001; 82962; 83605; 83690; 84484; 85025; 85610; 87040; 93005; 96361; 96365; 96366; 96375; 96376; 99251; 99285; J2185; J7030; Q9967; A4216; G0463; J2405

== ENCOUNTER 2018-12-30 04:34 | Emergency (ER) | payer OTHER, SELFPAY ==
[2018-12-01 19:07] VITALS: BMI 23.6
[2018-12-30 04:35] VITALS: BP 142/108; PULSE 122; RESP 18; TEMP 36.6; O2SAT 98; BMI 19.9
[2018-12-30] MEDS: HYDROmorphone 1 MG/ML Syringe IM (04:44)
--- NOTE | 2018-12-30 05:24 | ED.VIS.GEN ---
History of Present Illness Chief Complaint: Other, Pain/Inj Detail of Chief Complaint: PEG tube pulled out Informant: Patient, Family Onset: Today Narrative: Patient is currently being treated for esophageal cancer. He had a feeding tube placed at [facility] approximately 2 weeks ago. Patient states he rolled over in bed tonight and it pulled out. - Past Medical History (1) Esophageal cancer Status: Acute Past Medical History - Allergies and Home Meds Allergies/Adverse Reactions: Allergies morphine Adverse Reaction (Verified 12/30/18 04:39) Upset Stomach Primary Care Physician: Kathya Simth PA [Primary Care Provider] - Prior records reviewed: Yes Past Medical History: - - Reviewed Surgical History: - - Port Smoking Status: Never smoker Review of Systems General: Denies: Chills, Fever Cardiovascular: Denies: Chest pain Respiratory: Denies: Dyspnea, Cough Gastrointestinal: Reports: Abdominal pain. Denies: Nausea, Vomiting Physical Exam Vital Signs/Narrative: Vital Signs Temp Pulse Resp BP Pulse Ox 12/30/18 04:35 97.9 F 122 H 18 142/108 H 98 General: Cachectic Cardiovascular: Regular rhythm, Tachycardia Respiratory: No distress, CTA bilaterally Abdomen: Soft, - - Mild tenderness palpation around site of prior PEG tube. Diagnostic/Tx/Re-eval - Medical Decision Making Unfortunately we do not have the same size PEG tube as well as previously placed in the patient. He had an 18 [place] Bortex tube. I initially spoke with Dr. Conner and thought was to try to put a small Flowers catheter in place to hold the tube open. Because it is still a fairly fresh tract, if I am any resistance I was to wait. Before attempting this I did look him up in [facility] to review his records from [facility]. Patient actually had a jejunostomy tube placed on December 16. We do not have jejunostomy tubes available here to replace this. It sounds like they attempted a regular PEG tube and this was unsuccessful with absorption. I spoke with Dr. Gasca, ED attending at [facility]. Patient will be transferred ED to ED for J-tube replacement. At this time I do not believe he will need to be admitted. ED Disposition - Plan for ED Patient: Disposition: [facility] - Main Diagnosis: Dislodged jejunostomy tube Referrals: Kathya Smith PA [Primary Care Provider] -
[2018-12-30 05:28] VITALS: BP 134/97; PULSE 98; RESP 18; O2SAT 98
[2018-12-30 05:39] VITALS: BP 134/97; PULSE 98; RESP 18; TEMP 36.6; O2SAT 98
== END 2018-12-30 07:10 | disposition short-term general hospital (02) ==
PROVIDERS: Emergency Provider Emergency Medicine; Family Provider Physician Assistant; PCP Physician Assistant
DX: K94.19 Other complications of enterostomy (principal); C15.9 Malignant neoplasm of esophagus, unspecified
CPT/HCPCS: 96372; 99283